=== PATIENT | female | born 1965 | race Caucasian/White ===

== ENCOUNTER 2017-11-03 06:14 | Emergency (ER) | payer OTHER ==
[2017-11-03] MEDS ORDERED: Ondansetron INJ* 2 MG/ML VIAL IV ONE (06:31)
[2017-11-03] MEDS ORDERED: Morphine INJ* 10 MG/ML 1 ML CARPUJECT IV ONE (06:31)
[2017-11-03] MEDS ORDERED: NS 0.9% 1000 ML* 1,000 ML IV ONE (06:31)
--- NOTE | 2017-11-03 06:51 | ED ---
Angel Gaines Sixian, scribed for Jj Magdaleno on 11/03/17 at 0641 . Back Pain - HPI Summary HPI Summary: This patient is a 52 year old F BIBA to ED with a chief complaint of flank pain since 0500 today. The CC is described as flank pain radiating to the groin. The patient rates the pain 9/10 in severity. Symptoms aggravated by and alleviated by nothing. Patient reports back pain, chest pain, difficulty ambulating, swollen stomach, digestive issues. Patient denies fever, cough , rash, renal calculi. - History of Current Complaint Chief Complaint: EDFlankPain Time Seen by Provider: 11/03/17 06:24 Hx Obtained From: Patient Onset/Duration: Gradual Onset, Lasting Hours, Still Present Onset/Duration: Started Hours Ago, Still Present Timing: Constant, Lasting Hours Back Pain Location: Radiates To - R flank, groin Severity Currently: Severe Pain Intensity: 9 Pain Scale Used: 0-10 Numeric Aggravating Symptom(s): Nothing Alleviating Symptom(s): Nothing Associated Signs And Symptoms: Positive: Other - Patient reports back pain, chest pain, difficulty ambulating, swollen stomach, digestive issues. Patient denies fever, cough , rash, renal calculi. - Allergies/Home Medications Allergies/Adverse Reactions: Allergies Allergy/AdvReac Type Severity Reaction Status Date / Time Promethazine Allergy Anaphylatic Verified 09/16/13 10:48 [From Phenergan] Shock PMH/Surg Hx/FS Hx/Imm Hx Endocrine/Hematology History: Denies: Hx Diabetes Cardiovascular History: Denies: Hx Hypertension History: Denies: Hx Renal Disease - Surgical History Surgery Procedure, Year, and Place: Tubal ligation x 25 years - Immunization History Date of Tetanus Vaccine: Unk Date of Influenza Vaccine: Fall 2013 Infectious Disease History: No Infectious Disease History: Denies: Traveled Outside the [place] in Last 30 Days - Family History Known Family History: Positive: Cardiac Disease - CHF - Social History Alcohol Use: Rare Substance Use Type: Reports: None Smoking Status (MU): Heavy Every Day Tobacco Smoker Review of Systems Negative: Fever Positive: Chest Pain Negative: Cough Positive: Other - swollen stomach, digestive issues Positive: other - NEGATIVE: renal calculi Positive: Other - back pain, difficulty ambulating Negative: Rash All Other Systems Reviewed And Are Negative: Yes Physical Exam - Summary Physical Exam Summary: Appearance: Well appearing, no pain distress Skin: warm, dry, reflects adequate perfusion Head/face: normal Eyes: EOMI, PRISCILLA ENT: normal Neck: supple, non-tender Respiratory: CTA, breath sounds present Cardiovascular: RRR, pulses symmetrical Abdomen: RLQ tenderness Bowel: present Musculoskeletal: strength/ROM intact, tenderness in the R flank Neuro: normal, sensory motor intact, A&Ox3 Triage Information Reviewed: Yes Vital Signs On Initial Exam: Initial Vitals Temp Pulse Resp BP Pulse Ox 97.8 F 69 21 140/87 98 11/03/17 06:20 11/03/17 06:20 11/03/17 06:20 11/03/17 06:20 11/03/17 06:20 Vital Signs Reviewed: Yes Diagnostics - Vital Signs Vital Signs Temp Pulse Resp BP Pulse Ox 11/03/17 06:20 97.8 F 69 21 140/87 98 - Laboratory Lab Statement: Any lab studies that have been ordered have been reviewed, and results considered in the medical decision making process. - Radiology CXR Radiology Interpretation Completed By: ED Physician - Pending official interpretation from radiologist. See [employer]. - CT abd/pel CT Interpretation Completed By: ED Physician - Pending official interpretation from radiologist. See [employer]. - Additional Comments Diagnostic Additional Comments: EKG: Pending official interpretation from radiologist. See [employer]. Back Pain Course/Dx - Course Assessment/Plan: This patient is a 52 year old F BIBA to ED with a chief complaint of flank pain since 0500 today. Radiology included CXR, EKG, CT abd/ pel. Pending official interpretation from radiologist. See [employer]. In the ED course the patient was given Morphine and Zofran. Bloodwork and urinalysis were obtained. The pt is signed out to Dr. Powers, awaiting CXR, EKG, CT. - Diagnoses Provider Diagnoses: Chest pain, Flank pain Discharge - Discharge Plan Condition: Stable Disposition: OTHER Discharge Disposition Comment: The pt is signed out to Dr. Powers, awaiting CXR , EKG, CT. Referrals: Jhonatan Foster MD [Primary Care Provider] - The documentation as recorded by the Angel prince Sixian accurately reflects the service I personally performed and the decisions made by , Jj Magdaleno.
[2017-11-03 07:01] LABS: ABS Basophils 0 10^3/ul (0-0.2); ABS Eosinophils 0.2 10^3/ul (0-0.6); ABS Lymphocytes 2.3 10^3/ul (1.0-4.8); ABS Monocytes 0.9 10^3/ul (0-0.8); ABS Neutrophils 7.9 10^3/ul (1.5-7.7); ABS Nucleated RBC 0 10^3/ul; Eosinophil % 1.6 % (0-6); Hematocrit 43 % (35-47); Hemoglobin 14.3 g/dl (12.0-16.0); Mean Corpuscular HGB Conc 33 g/dl (31-36); Mean Corpuscular Hemoglobin 28 pg (27-31); Mean Corpuscular Volume 84 fL (80-97); Mean Platelet Volume 8 um3 (7.4-10.4); Nucleated Red Blood Cells % 0.1; Platelet Count 201 10^3/ul (150-450); Red Blood Count 5.14 10^6/ul (4.0-5.4); Red Cell Distribution Width 15 % (10.5-15); White Blood Count 11.3 10^3/ul (3.5-10.8)
[2017-11-03] MEDS ORDERED: LORazepam TAB(*) 1 MG ONE (07:11)
[2017-11-03 07:12] LABS: INR 0.91 (0.77-1.02)
[2017-11-03] MEDS ORDERED: LORazepam TAB(*) 1 MG PO ONE (07:15)
[2017-11-03 07:16] LABS: EGFR Non-African American 78.1 (>60)
[2017-11-03 08:02] LABS: Urine Appearance Clear; Urine Blood Negative (Negative); Urine Color Yellow; Urine Ketones Negative (Negative); Urine Protein 2+(100 mg/dL) (Negative); Urine Specific Gravity 1.024 (1.010-1.030); Urine Urobilinogen Negative (Negative)
--- NOTE | 2017-11-03 09:34 | RAD ---
Indication: Right flank pain. CT of the abdomen and pelvis was performed without oral or IV contrast administration. Coronal and sagittal reconstructed images were obtained. The lung bases demonstrate some dependent changes in the right lung base. No pleural fluid is identified. There may be some mild alveolitis in the right lower lobe. Heart demonstrates no pericardial effusion. Liver is normal in size. No definite focal lesions identified although evaluation is limited due to lack of IV contrast. No definite intrahepatic ductal dilatation is noted. The gallbladder is no calcific gallstones. No pericholecystic fluid or wall thickening is identified. The common duct is not dilated. The pancreas demonstrates no mass or pancreatic duct dilatation. The spleen is normal in size. There is bilateral adrenal hyperplasia with no focal masses. The kidneys demonstrates no hydronephrosis of either kidney. 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 No retroperitoneal adenopathy is noted. No dilated loops of bowel are noted. CT of the pelvis demonstrates normal appearing appendix. Uterus and ovaries are unremarkable. No hernias are noted. The lumbar spine demonstrates degenerative disc disease at L3-L4, L4-L5 with spondylytic ridge and broad-based protrusion. Degenerative disc disease is also noted at L2-L3. No fracture is noted. IMPRESSION: No obstructive uropathy is noted. Normal appendix. No other masses or fluid collections are noted. Multilevel degenerative disc disease is noted.
--- NOTE | 2017-11-03 11:23 | RAD ---
Indication: Chest pain. Single frontal view of the chest performed at 0650 hours was reviewed. Comparison is made with previous exam dated October 24, 2014. No mediastinal shift is noted. Heart is of normal size and configuration. Lung [place] appear clear. IMPRESSION: NO ACTIVE CARDIOPULMONARY DISEASE IS NOTED.
[2017-11-03 13:16] VITALS: BP 140/82
--- NOTE | 2017-11-03 23:38 | ED ---
IChi Tiffany, scribed for Brigida Powers MD on 11/03/17 at 0815 . Progress - Progress Note Progress Note: Patient is a sign out from Dr. Magdaleno at shift change. - EKG/XRAY/CT EKG: NSR - 62 BPM, unchanged from - 09/28/15 Comments: Taken at 06:58. nml AVIVCT, nml QTc, nml axis. NSSTW changes. No ectopy. XRAY: chest - Radiologist interprets NO ACTIVE CARDIOPULMONARY DISEASE. ED physician has reviewed this report. CT: Nml CT Abd/Pel per radiologist. Notes multilev degen disc disease. Reviewed Re-Evaluation - Re-Evaluation First Eval Re-Evaluation Time: 13:31 Change: Improved Comment: Patient's pain is down to 5. Feeling much better. Given results. Agreeable to discharge/ Course/Dx - Course Course Of Treatment: EKG no change from 09/28/15. Nml CXR. Nml CT Abd/Pel. Patient will be discharged. The documentation as recorded by the Chi prince Tiffany accurately reflects the service I personally performed and the decisions made by , Brigida Powers MD.
== END 2017-11-03 13:15 | disposition home or self-care (01) ==
LOC: ED 06:14
DX: R07.9 Chest pain, unspecified (principal); R10.9 Unspecified abdominal pain; M54.9 Dorsalgia, unspecified; F17.210 Nicotine dependence, cigarettes, uncomplicated
CPT/HCPCS: 36415; 71045; 74176; 80053; 81003; 81015; 83605; 83690; 84484; 84702; 85025; 85610; 85730; 87086; 93005; 96374; 99283; A9270-GY; J2270; J2405